=== PATIENT | female | born 2000 | race Two or more races ===

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

== ENCOUNTER 2024-05-08 06:29 | Emergency (ER) | payer MEDICAID, OTHER ==
[~2024-05-08] VITALS: Ht 157.5 cm; Wt 85.2 kg
[~2024-05-08 06:29] MED LIST: PREN-129 PO
[2024-05-08 06:34] VITALS: BP 124/81; PULSE 82; RESP 16; TEMP 97.8; O2SAT 99
[2024-05-08] MEDS ORDERED: PROM1SOL4 PO (06:55)
[2024-05-08] MEDS ORDERED: ALBU108A5 IN (06:55)
== END 2024-05-08 06:58 | disposition home or self-care (01) ==
LOC: ER 06:29
DX: J06.9 Acute upper respiratory infection, unspecified (principal); J45.909 Unspecified asthma, uncomplicated

== ENCOUNTER 2024-08-03 00:42 | Emergency (ER) | payer MEDICAID, OTHER ==
[~2024-08-03] VITALS: Ht 157.5 cm; Wt 84.6 kg
[~2024-08-03 00:42] MED LIST changes: +ALBU108A5 IN; +PROM1SOL4 PO
[2024-08-03] MEDS: IPRATROPIUM BROM 0.5 MG/2.5ML INH SOL NEB ONE (01:30)
[2024-08-03] MEDS: ALBUTEROL SULF 2.5 MG/0.5ML(0.5%) NEB SOLN NEB ONE (01:30)
[2024-08-03 02:35] VITALS: BP 147/87; PULSE 95; RESP 18; TEMP 98.3; O2SAT 99
[2024-08-03] MEDS: DexAMETHasone SOD PHOS 10MG/1ML VIAL INJ IM ONE (02:53)
[2024-08-03] MEDS ORDERED: PRED20TA2 PO (03:06)
[2024-08-03] MEDS ORDERED: ALBU108A5 IN (03:06)
[2024-08-03] MEDS: TETANUS-DIPTH-ACEL PERTUSSIS 0.5ML SYR Tdap IM ONE (03:41)
[2024-08-04] MEDS ORDERED: ALBU108A5 IN (03:23)
== END 2024-08-03 03:46 | disposition home or self-care (01) ==
LOC: ER 00:42
DX: S61.221A Laceration with foreign body of left index finger without damage to nail, initial encounter (principal); J45.909 Unspecified asthma, uncomplicated; Z79.899 Other long term (current) drug therapy; Z98.890 Other specified postprocedural states; Z91.012 Allergy to eggs; X58.XXXA Exposure to other specified factors, initial encounter; Y93.89 Activity, other specified; Y92.89 Other specified places as the place of occurrence of the external cause; Y99.8 Other external cause status
CPT/HCPCS: 10120; 90471; 90715; 94640; 96372; 99285; J1100

== ENCOUNTER 2024-08-11 04:00 | Emergency (ER) | payer MEDICAID ==
[~2024-08-11 04:00] MED LIST changes: +PRED20TA2 PO
== END 2024-08-11 04:36 | disposition left against medical advice (07) ==
LOC: ER 04:00
DX: Z48.00 Encounter for change or removal of nonsurgical wound dressing (principal); Z53.21 Procedure and treatment not carried out due to patient leaving prior to being seen by health care provider

== ENCOUNTER 2024-12-31 12:56 | Emergency (ER) | payer MEDICAID ==
[~2024-12-31] VITALS: Ht 157.5 cm; Wt 85.5 kg
[2024-12-31 13:17] VITALS: TEMP 98.1
[2024-12-31] MEDS: ONDANSETRON ODT 4 MG TAB PO ONE (13:23)
--- NOTE | 2024-12-31 13:39 | ED.PDOC ---
History of Present Illness HPI Comments 24 y/o F, with a history of asthma and obesity, presents with c/o nausea and vomiting for 2x weeks, today. Patient endorses on having symptoms "[id number]" for the above-mentioned duration of time. She comments on LMP being in October 2024 and not taking any test or seeking outpatient medical care for symptoms since then. Patient denies having any abdominal pain, hematemesis, diarrhea, constipation, fever, chills, urinary symptoms, or other associated symptoms or modifiers at this time. Chief Complaint: Nausea/Vomiting Time Seen by MD: 13:00 Primary Care Provider: NONE Reviewed Notes: Nurses Notes, Medications, Allergies Allergies: Coded Allergies: Egg-derived Products (Verified Allergy, Intermediate, Rash, itching, 12/21/21) Rash, itching Home Meds Active Scripts Albuterol Sulfate (Albuterol Sulfate Hfa) 108 Mcg/Act Aer, 108 MCG IN TID, #90 AER Prov:KEVIN DEMPSEY MD 08/04/24 Prednisone (Prednisone) 20 Mg Tab, 40 MG PO DAILY for 5 Days, #10 TAB Prov:YONG THOMPSON 08/03/24 Promethazine-Dm (Promethazine Dm 6.25-15 mg/5Ml) 1 Lata Lata, 5 ML PO TID, #150 ML Prov:INDRA REYES 05/08/24 Reported Medications Vit W/ Ferrous Fumara () Unknown Strength Tab, PO DAILY, #1 TAB 12/22/21 Information Source: Patient Mode of Arrival: Ambulatory Severity: Moderate Timing: Weeks Duration: Since onset Prehospital treatment: None Past Medical History PAST MEDICAL HISTORY: Asthma Past Medical History (Other): obesity Surgical History: Denies all surgeries COLD ROLL INSPECTOR History: No Pertinent COLD ROLL INSPECTOR History LMP 10/2024 Family History Family History: Reviewed,noncontributory to illness, No family hx of Cancer, No family hx of DM, No family hx of Heart arielle, No family hx of HTN, No family hx ofKidney arielle, No family hx of Liver arielle, No family hx of Lung arielle, No family hx of Stroke Social History Smoker: Non-Smoker Alcohol: Denies ETOH Use Drugs: Denies Drug Use Lives In: Home Gastrointestinal: reports: nausea, vomiting All Other Systems: Reviewed and Negative (negative unless otherwise stated above or in HPI) Physical Exam General Appearance: No Apparent Distress, Obese HEENT: Normal ENT Inspection, Pharynx Normal, TMs Normal Neck: Full Range of Motion, Non-Tender, Normal, Normal Inspection Respiratory: Chest Non-Tender, Lungs Clear, No Accessory Muscle Use, No Respiratory Distress, Normal Breath Sounds Cardiovascular: No Edema, No JVD, No Murmur, No Gallop, Normal Peripheral Pulses, Regular Rate/Rhythm Breast Exam: Deferred Gastrointestinal: No Organomegaly, Non Tender, No Pulsatile Mass, Normal Bowel Sounds, Soft Genitalia: Deferred Pelvic: Deferred Rectal: Deferred Extremities: No calf tenderness, Normal capillary refill, Normal inspection, Normal range of motion, Non-tender, No pedal edema Musculoskeletal : Apperance: Normal Neurologic: Alert, animal behaviourist II-XII nml as Tested, No Motor Deficits, Normal Affect, Normal Mood, No Sensory Deficits Cerebellar Function: Normal Reflexes: Normal Skin: Dry, Normal Color, Warm Lymphatic: No Adenopathy Was a procedure done? Was a procedure done?: No Differential Dx Considerations may include: , gastritis, gastroenteritis, viral syndrome X-Ray, Labs, Meds, VS Vital Signs Date Time Temp Pulse Resp B/P (MAP) Pulse Ox O2 Delivery O2 Flow Rate FiO2 12/31/24 15:15 65 16 131/51 (77) 100 12/31/24 13:17 86 18 98 Room Air 12/31/24 13:17 98.1 86 18 133/78 (96) 98 98.1 12/31/24 13:02 98.2 76 16 134/80 (98) 100 Lab Test 12/31/24 15:23 12/31/24 13:07 Range/Units Beta HCG, Quantitative 24071.5 H 1.5-4.2 mIU/mL Urine Color Yellow Yellow Urine Clarity Clear Clear Urine pH 6.0 5.0-9.0 Urine Specific [place] 1.025 1.001-1.035 Urine Protein Negative Negative Urine Ketones Negative Negative Urine Blood Negative Negative /uL Urine Nitrite Negative Negative Urine Bilirubin Negative Negative Urine Urobilinogen Normal Negative mg/dL Urine Leukocyte Esterase Trace Negative /uL Urine RBC 2 0 - 4 /hpf Urine Microscopic WBC 1 0-5 /HPF Urine Squamous Epithelial Cells Few <5 /hpf Urine Bacteria Few H None Seen /hpf Urine Mucus Few None Seen Urine Glucose Normal Normal mg/dL Urine Test Positive Negative Current Medications Medications (Trade) Dose Ordered Sig/Abdelrahman Route Start Time Stop Time Status Last Admin Ondansetron HCl (Zofran Po) 4 mg ONCE ONCE PO 12/31/24 13:15 12/31/24 13:16 DC 12/31/24 13:23 Time of 1ST Reevaluation: 13:30 Reevaluation 1ST: Unchanged Patient Education/Counseling: Diagnosis, Treatment, Prognosis, Need For Follow Up Family Education/Counseling: No Family Present Additional Information - I reviewed the following notes from patient's past medical encounters: previous ED visit on 08/11/24 - The following tests were ordered, and results were reviewed by me: test, urine - I discussed treatmlinents and results with medical personnel Departure 1 Departure Time of Disposition: 17:37 Impression: Primary Impression: Nausea and vomiting during Disposition: 01 HOME / SELF CARE / HOMELESS Condition: Good e-Prescriptions Ondansetron Odt 4MG Tab (ZOFRAN PO) 4 Mg Tb 4 MG PO Q4HP PRN for 3 Days, #15 TAB ODT TAB-DISSOLVE IN MOUTH, THEN SWALLOW Prov: SHEELA CAPELLAN MD 12/31/24 Discharged With: Self Critical Care Note Critical Care Time?: No Stability Stability form required: No Heart Score Heart Score: Heart Score Response (Comments) Value History N/A 0 EKG N/A 0 Age N/A 0 Risk Factors N/A 0 Troponin N/A 0 Total 0 I personally scribed for SHEELA CAPELLAN MD ([email or web address]) on 12/31/24 at 13:39. Electronically submitted by Hernandez Pizarro ([email or web address]). SHEELA CAPELLAN MD Dec 31, 2024 13:39
[2024-12-31 16:02] LABS: Urine Bacteria FEW /hpf (None Seen); Urine Blood Negative /uL (Negative); Urine Clarity Clear (Clear); Urine Color Yellow (Yellow); Urine Mucus FEW (None Seen); Urine Protein, UAD Negative (Negative); Urine Specific Gravity 1.025 (1.001-1.035); Urine Squamous Epithelial Cell FEW /hpf (<5); Urine Urobilinogen Normal (Negative); Urine WBC 1 /HPF (0-5)
--- NOTE | 2024-12-31 16:38 | DVH ---
EXAM: US , Transvaginal CLINICAL INDICATION: VOMITTING TECHNIQUE: Real-time transvaginal obstetrical ultrasound of the maternal pelvis and a first trimeste r with image documentation. Transvaginal imaging was used for better evaluation of the fet us and adnexa. COMPARISON: None FINDINGS: GESTATION: A single intrauterine . Gestational sac 2.37 cm. CRL 0.82 cm. Yolk sac visua lized. heart rate 123 beats per minute. PLACENTA/AMNIOTIC FLUID: Cannot be adequately evaluated due to the early gestational age. UTERUS/CERVIX: Unremarkable. No myometrial mass. The uterus measures 10.5 x 7.4 x 6.6 cm. OVARIES: Right ovary 3.4 a couple of 1.6, 1.5. No mass. The left ovary measures 4.0 x 2.5 x 2.0 c m. FREE FLUID: No free fluid. OTHER FINDINGS: . . GUDELIA 08/20/2025. . .. IMPRESSION: A live intrauterine corresponding to 6 weeks and 6 days gestation.
[2024-12-31] MEDS ORDERED: ZOFR4T PO (17:38)
[2024-12-31 17:43] VITALS: PULSE 67; RESP 16; O2SAT 100
[2024-12-31 17:44] VITALS: BP 146/74; PULSE 66; RESP 17; O2SAT 100
== END 2024-12-31 17:46 | disposition home or self-care (01) ==
LOC: ER 12:56
DX: O21.9 Vomiting of pregnancy, unspecified (principal); O99.511 Diseases of the respiratory system complicating pregnancy, first trimester; J45.909 Unspecified asthma, uncomplicated; Z79.52 Long term (current) use of systemic steroids; Z79.899 Other long term (current) drug therapy; Z91.012 Allergy to eggs; Z3A.01 Less than 8 weeks gestation of pregnancy
CPT/HCPCS: 36415; 76801; 76817; 81001; 81025; 84702; 86850; 86900; 86901; 99284; Q0162

== ENCOUNTER 2025-03-10 02:11 | Emergency (ER) | payer MEDICAID ==
[~2025-03-10] VITALS: Ht 157.5 cm; Wt 85.3 kg
[~2025-03-10 02:11] MED LIST changes: +ZOFR4T PO
--- NOTE | 2025-03-10 02:29 | ED.PDOC ---
GI ASSESSMENT HPI Comments 24 year old female presents to the ED with a chief complaint of abdominal pain onset today about 1 hour ago. Patient states she began experiencing RLQ pain about 1 hour ago, described as as a sharp and constant pain. PMHx asthma. Denies nausea, vomiting, diarrhea, chest pain, shortness of breath, headache, dizziness, blurry vision, fevers, chills. No other symptoms or modifying factors present at this time. Time Seen by MD: 02:25 Primary Care Provider: NONE Reviewed Notes: Medications, Allergies Allergies: Coded Allergies: Egg-derived Products (Verified Allergy, Intermediate, Rash, itching, 12/21/21) Rash, itching Home Meds Active Scripts Famotidine (PEPCID TABLET) 20 Mg Tb, 1 TAB PO BID PRN, #60 TAB 5 Refills Prov:PAULIE FROST MD 03/10/25 Metoclopramide Hcl (Reglan) 5 Mg Tab, 5 MG PO Q6HP PRN, #30 TAB Prov:PAULIE FROST MD 03/10/25 Cefdinir (Cefdinir) 300 Mg Cap, 1 CAP PO BID for 7 Days, #14 CAP Prov:PAULIE FROST MD 03/10/25 Ondansetron Odt 4MG Tab (ZOFRAN PO) 4 Mg Tb, 4 MG PO Q4HP PRN for 3 Days, #15 TAB ODT TAB-DISSOLVE IN MOUTH, THEN SWALLOW Prov:SHEELA CAPELLAN MD 12/31/24 Albuterol Sulfate (Albuterol Sulfate Hfa) 108 Mcg/Act Aer, 108 MCG IN TID, #90 AER Prov:KEVIN DEMPSEY MD 08/04/24 Prednisone (Prednisone) 20 Mg Tab, 40 MG PO DAILY for 5 Days, #10 TAB Prov:YONG THOMPSON 08/03/24 Promethazine-Dm (Promethazine Dm 6.25-15 mg/5Ml) 1 Lata Lata, 5 ML PO TID, #150 ML Prov:INDRA REYES 05/08/24 Reported Medications Vit W/ Ferrous Fumara () Unknown Strength Tab, PO DAILY, #1 TAB 12/22/21 Information Source: Patient Mode of Arrival: Ambulatory Timing: Hours Duration: Since onset Prehospital treatment: None Quality: Sharp Vomitus: None Severity: Moderate Recent: None Recent Hx of: None Pain Location: RLQ Modifying Factors: Nothing Associated sign and symptoms: Abdominal Pain Past Medical History PAST MEDICAL HISTORY: Asthma Surgical History: Denies all surgeries PUTTY AND CAULKING SUPERVISOR History: No Pertinent PUTTY AND CAULKING SUPERVISOR History Family History Family History: Reviewed,noncontributory to illness, No family hx of Cancer, No family hx of DM, No family hx of Heart arielle, No family hx of HTN, No family hx ofKidney arielle, No family hx of Liver arielle, No family hx of Lung arielle, No family hx of Stroke Social History Smoker: Non-Smoker Alcohol: Denies ETOH Use Drugs: Denies Drug Use Lives In: Home Constitutional: denies: chills, diaphoresis, fatigue, fever, malaise, sweats, weakness, others EENTM: denies: blurred vision, double vision, ear bleeding, ear discharge, ear drainage, ear pain, ear ringing, eye pain, eye redness, hearing loss, mouth pain, mouth swelling, nasal discharge, nose bleeding, nose congestion, nose pain, photophobia, tearing, throat pain, throat swelling, voice changes, others Respiratory: denies: cough, hemoptysis, orthopnea, SOB at rest, shortness of breath, SOB with excertion, stridor, wheezing, others Cardiovascular: denies: chest pain, dizzy spells, diaphoresis, Dyspnea on exer tion, edema, irregular heart beat, left arm pain, lightheadedness, palpitations, PND, syncope, others Gastrointestinal: reports: abdominal pain (RLQ); denies: abdomen distended, blood streaked bowels, constipated, diarrhea, dysphagia, difficulty swallowing, hematemesis, melena, nausea, poor appetite, poor fluid intake, rectal bleeding, rectal pain, vomiting, others Genitourinary: denies: abnormal vagina bleeding, burning, dyspareunia, dysuria, flank pain, frequency, hematuria, incontinence, pain, , vagina discharge, urgency, others Neurological: denies: dizziness, fainting, headache, left sided numbness, left sided weakness, numbness, paresthesia, pre-existing deficit, right sided numbness, right sided weakness, seizure, speech problems, tingling, tremors, weakness, others Musculoskeletal: denies: back pain, gout, joint pain, joint swelling, muscle pain, muscle stiffness, neck pain, others Integumetry: denies: bruises, change in color, change in hair/nails, dryness, laceration, lesions, lumps, rash, wounds, others Allergic/Immunocompromised: denies: Difficulty Healing, Frequent Infections, Hives, Itching, others Hematologic/Lymphatic: denies: anemia, blood clots, easy bleeding, easy bruising, swollen glands, others Endocrine: denies: excessive hunger, excessive sweating, excessive thirst, excessive urination, flushing, intolerance to cold, intolerance to heat, unexplained weight gain, unexplained weight loss, others Psychiatric: denies: anxiety, bipolar disorder, depression, hopeless, panic disorder, schizophrenia, sleepless, suicidal, others All Other Systems: Reviewed and Negative Physical Exam General Appearance: No Apparent Distress, Normal HEENT: Normal ENT Inspection, Pharynx Normal, TMs Normal Neck: Full Range of Motion, Non-Tender, Normal, Normal Inspection Respiratory: Chest Non-Tender, Lungs Clear, No Accessory Muscle Use, No Respiratory Distress, Normal Breath Sounds Cardiovascular: No Edema, No JVD, No Murmur, No Gallop, Normal Peripheral Pulses, Regular Rate/Rhythm Breast Exam: Deferred Gastrointestinal: No Organomegaly, Non Tender, No Pulsatile Mass, Normal Bowel Sounds, Soft Genitalia: Deferred Pelvic: Deferred Rectal: Deferred Extremities: No calf tenderness, Normal capillary refill, Normal inspection, Normal range of motion, Non-tender, No pedal edema Musculoskeletal : Apperance: Normal Neurologic: Alert, energy sales consultant II-XII nml as Tested, No Motor Deficits, Normal Affect, Normal Mood, No Sensory Deficits Cerebellar Function: Normal Reflexes: Normal Skin: Dry, Normal Color, Warm Lymphatic: No Adenopathy Was a procedure done? Was a procedure done?: No GI differential Dx Differential Diagnosis: Appendicitis, Complete , Incomplete , Inevitable , Cholangitis, Cholecystitis, Constipation, Ectopic , Gastritis/PUD, Gastroenteritis, Hernia, Inflammatory BD, Pancreatitis, Other X-Ray, Labs, Meds, VS Vital Signs Date Time Temp Pulse Resp B/P (MAP) Pulse Ox O2 Delivery O2 Flow Rate FiO2 03/10/25 03:30 89 19 127/79 03/10/25 02:56 98.1 93 16 126/78 (94) 97 98.1 03/10/25 02:55 93 16 126/78 03/10/25 02:20 98.4 83 16 143/76 (98) 100 98.4 Lab Test 03/10/25 02:35 03/10/25 02:34 03/10/25 02:20 Range/Units White Blood Count 12.0 H 4.4-10.8 10^3/uL Red Blood Count 4.48 4.0-5.20 10^6/uL Hemoglobin 10.4 L 12.2-16.2 g/dL Hematocrit 31.9 L 36.0-46.0 % Mean Corpuscular Volume 71.2 L 80.0-100.0 fL Mean Corpuscular Hemoglobin 23.1 L 28.0-32.0 pg Mean Corpuscular Hemoglobin Concent 32.5 32.0-36.0 g/dL Red Cell Distribution Width 20.7 H 11.8-14.3 % Platelet Count 363 140-450 10^3/uL Mean Platelet Volume 7.9 6.9-10.8 fL Neutrophils (%) (Auto) 75.4 37.0-80.0 % Lymphocytes (%) (Auto) 17.7 10.0-50.0 % Monocytes (%) (Auto) 4.5 0.0-12.0 % Eosinophils (%) (Auto) 1.8 0.0-7.0 % Basophils (%) (Auto) 0.6 0.0-2.0 % Neutrophils # (Auto) 9.0 H 1.6-8.6 10 ^3/uL Lymphocytes # (Auto) 2.1 0.4-5.4 10 ^3/uL Monocytes # (Auto) 0.5 0-1.3 10 ^3/uL Eosinophils # (Auto) 0.2 0-0.8 10 ^3/uL Basophils # (Auto) 0.1 0-0.2 10 ^3/uL Nucleated Red Blood Cells 0.1 % Sodium Level 135 L 136-145 mmol/L Potassium Level 3.9 3.5-5.1 mmol/L Chloride Level 104 98-107 mmol/L Carbon Dioxide Level 22 20-31 mmol/L Anion Gap 9 5-15 Blood Urea Nitrogen 6 L 9-23 mg/dL Creatinine 0.54 L 0.550-1.02 mg/dL Glomerular Filtration Rate Calc 133 >90 mL/min BUN/Creatinine Ratio 11.1 10.0-20.0 Serum Glucose 89 74-106 mg/dL Calcium Level 9.9 8.7-10.4 mg/dL Total Bilirubin 0.3 0.2-1.0 mg/dL Aspartate Amino Transferase (AST) 9 L 13-40 U/L Alanine Aminotransferase (ALT) < 9 7-40 U/L Alkaline Phosphatase 56 46-116 U/L Total Protein 7.8 5.7-8.2 g/dL Albumin 4.2 3.2-4.8 g/dL Lipase 38 12-53 U/L Beta HCG, Quantitative 41971.3 H 1.5-4.2 mIU/mL Urine Color Colorless Yellow Urine Clarity Turbid H Clear Urine pH 6.0 5.0-9.0 Urine Specific [place] 1.012 1.001-1.035 Urine Protein 1+ H Negative Urine Ketones Negative Negative Urine Blood Negative Negative /uL Urine Nitrite 2+ H Negative Urine Bilirubin Negative Negative Urine Urobilinogen Normal Negative mg/dL Urine Leukocyte Esterase 3+ Negative /uL Urine RBC 4 0 - 4 /hpf Urine WBC Clumps Present None Seen /hpf Urine Microscopic WBC 192 H 0-5 /HPF Urine Squamous Epithelial Cells Few <5 /hpf Urine Bacteria Few H None Seen /hpf Urine Hyaline Casts Few 0 - 2 /lpf Urine Mucus Few None Seen Urine Glucose Normal Normal mg/dL Current Medications Medications (Trade) Dose Ordered Sig/Abdelrahman Route Start Time Stop Time Status Last Admin Sodium Chloride 1,000 ml @ 1,000 mls/hr Q1H ONCE IVB 03/10/25 02:30 03/10/25 03:29 DC 03/10/25 02:56 Morphine Sulfate 4 mg ONCE ONCE IV 03/10/25 02:30 03/10/25 02:31 DC 03/10/25 02:55 Ondansetron HCl (Zofran) 4 mg ONCE ONCE IV 03/10/25 02:30 03/10/25 02:31 DC 03/10/25 02:56 Ceftriaxone Sodium 50 ml @ 100 mls/hr ONCE ONCE IV 03/10/25 04:30 03/10/25 04:59 DC 03/10/25 04:30 Time of 1ST Reevaluation: 02:55 Reevaluation 1ST: Unchanged Patient Education/Counseling: Diagnosis, Treatment, Prognosis Family Education/Counseling: No Family Present Additional Information The following tests were ordered, and results were reviewed by me: CBC, CMP, BETA HCG, LIPASE, UA, CT AB PEL WITH IV I reviewed and agreed with the following test results read by other providers: CT AB PEL WITH IV I discussed treatment and results with medical personnel and: Patient Comprehensive systems review obtained and negative except for what is stated in the HPI. Departure 1 Departure Time of Disposition: 04:00 Impression: Primary Impression: 16 weeks gestation of Additional Impression: UTI (urinary tract infection) Disposition: HOME / SELF CARE / HOMELESS Condition: Stable e-Prescriptions Famotidine (PEPCID TABLET) 20 Mg Tb 1 TAB PO BID PRN, #60 TAB 5 Refills Prov: PAULIE FROST MD 03/10/25 Metoclopramide Hcl (Reglan) 5 Mg Tab 5 MG PO Q6HP PRN, #30 TAB Prov: PAULIE FROST MD 03/10/25 Cefdinir (Cefdinir) 300 Mg Cap 1 CAP PO BID for 7 Days, #14 CAP Prov: PAULIE FROST MD 03/10/25 Discharged With: Self Critical Care Note Critical Care Time?: No Stability Stability form required: No I personally scribed for PAULIE FROST MD ([email or web address]) on 03/10/25 at 02:29. Electronically submitted by Elsie Mckeon ([email or web address]). I personally scribed for PAULIE FROST MD ([email or web address]) on 03/10/25 at 02:39. Electronically submitted by Elsie Mckeon ([email or web address]). PAULIE FROST MD Mar 10, 2025 02:29
[2025-03-10 02:45] LABS: Basophils # (auto) 0.1 10 ^3/uL (0-0.2); Eosinophils # (auto) 0.2 10 ^3/uL (0-0.8); Hemoglobin 10.4 g/dL (12.2-16.2); Lymphocytes # (auto) 2.1 10 ^3/uL (0.4-5.4); Mean Corpuscular Hemoglobin 23.1 pg (28.0-32.0)
[2025-03-10 02:47] LABS: Basophils % (auto) 0.6 % (0.0-2.0); Eosinophils % (auto) 1.8 % (0.0-7.0); Hematocrit 31.9 % (36.0-46.0); Lymphocytes % (auto) 17.7 % (10.0-50.0); Mean Corpuscular Hgb Conc. 32.5 g/dL (32.0-36.0); Mean Corpuscular Volume 71.2 fL (80.0-100.0); Monocytes # (auto) 0.5 10 ^3/uL (0-1.3); Monocytes % (auto) 4.5 % (0.0-12.0); Neutrophils % (auto) 75.4 % (37.0-80.0); Nucleated Red Blood Cells % 0.1 %; Platelet Count (auto) 363 10^3/uL (140-450); Red Blood Cells 4.48 10^6/uL (4.0-5.20); Red Cell Distribution Width 20.7 % (11.8-14.3)
[2025-03-10] MEDS: MORPHINE SULFATE 4 MG/ML SYR/VIAL IV ONE (02:55)
[2025-03-10 02:56] VITALS: TEMP 98.1; O2SAT 97
[2025-03-10] MEDS: SODIUM CHLORIDE 0.9% 1,000 ML IVB ONE (02:56)
[2025-03-10] MEDS: ONDANSETRON HCL 4 MG/2 ML VIAL IV ONE (02:56)
[2025-03-10 03:10] LABS: Albumin 4.2 g/dL (3.2-4.8); Alkaline Phosphatase 56 U/L (46-116); Anion Gap 9 (5-15); BUN/Creatinine Ratio 11.1 (10.0-20.0); Bilirubin, Total 0.3 mg/dL (0.2-1.0); Calcium 9.9 mg/dL (8.7-10.4); Carbon Dioxide 22 mmol/L (20-31); Chloride 104 mmol/L (98-107); Glucose 89 mg/dL (74-106); Lipase 38 U/L (12-53); Potassium 3.9 mmol/L (3.5-5.1); Total Protein 7.8 g/dL (5.7-8.2)
[2025-03-10 03:19] LABS: Urine Bacteria FEW /hpf (None Seen); Urine Blood Negative /uL (Negative); Urine Clarity Turbid (Clear); Urine Color Colorless (Yellow); Urine Hyaline Cast FEW /lpf (0 - 2); Urine Mucus FEW (None Seen); Urine Protein, UAD 1+ (Negative); Urine Specific Gravity 1.012 (1.001-1.035); Urine Squamous Epithelial Cell FEW /hpf (<5); Urine Urobilinogen Normal (Negative); Urine WBC 192 /HPF (0-5); Urine WBC Clumps PRESENT /hpf (None Seen)
[2025-03-10 03:22] LABS: Alanine Aminotransferase < 9 U/L (7-40); Aspartate Aminotransferase 9 U/L (13-40); Blood Urea Nitrogen 6 mg/dL (9-23); Sodium 135 mmol/L (136-145)
[2025-03-10 03:30] VITALS: BP 127/79; PULSE 89; RESP 19
[2025-03-10] MEDS: cefTRIAXone 1GM/50ML D5W 50 ML IV ONE (04:30)
--- NOTE | 2025-03-10 05:25 | DVH ---
LIMITED OB ULTRASOUND > 14 WKS: HISTORY: abd pain TECHNIQUE: Multiple real-time grayscale images of the gravid uterus with duplex Doppler color flow an d M-mode spectral analysis. FINDINGS: IUP single live fetus at 16 weeks 5 days based on composite averages of the BPD, head circumference, abdominal circumference and femur length. Measurements are as follows: BPD: 3.5 cm, 16 day 6 weeks HC: 13.4 cm, 16 weeks 6 days AC: 10.8 cm, 16 weeks 5 days FL: 2.1 cm, 16 weeks 2 days. Estimated weight 160 grams heart rate 153 beats per minute Expected date of delivery 08/20/2025. ERIC not measured. MVP measures 6 cm. Cervix 3.2 cm in length. Breech Presentation Posterior Placenta without previa or abruption. IMPRESSION: 1. IUP single gestation measuring 16 weeks 5 days with positive heart rate.
[2025-03-10] MEDS ORDERED: CEFD300C2 PO (05:38)
[2025-03-10] MEDS ORDERED: METO5TAB67 PO (05:39)
[2025-03-10] MEDS ORDERED: FAMO20TA10 PO (05:39)
== END 2025-03-10 05:53 | disposition home or self-care (01) ==
LOC: ER 02:11
DX: O23.42 Unspecified infection of urinary tract in pregnancy, second trimester (principal); R10.2 Pelvic and perineal pain; N39.0 Urinary tract infection, site not specified; O99.512 Diseases of the respiratory system complicating pregnancy, second trimester; J45.909 Unspecified asthma, uncomplicated; Z79.52 Long term (current) use of systemic steroids; Z3A.16 16 weeks gestation of pregnancy; Z91.012 Allergy to eggs
CPT/HCPCS: 36415; 76805; 80053; 81001; 83690; 84702; 85025; 96361; 96365; 96375; 99285; J0696; J2270; J2405; J7030

== ENCOUNTER 2025-08-03 23:18 | Observation (INO) | payer MEDICAID ==
[~2025-08-03] VITALS: Ht 160 cm; Wt 88.5 kg
[~2025-08-03 23:18] MED LIST changes: +CEFD300C2 PO; +FAMO20TA10 PO; +METO5TAB67 PO
[2025-08-04 00:52] LABS: Hematocrit 28.9 % (36.0-46.0); Hemoglobin 8.9 g/dL (12.2-16.2); Mean Corpuscular Hemoglobin 21.8 pg (28.0-32.0); Mean Corpuscular Volume 70.5 fL (80.0-100.0); Nucleated Red Blood Cells % 0.1 %
[2025-08-04 01:04] LABS: Urine Protein, UAD Negative (Negative)
[2025-08-04 01:11] LABS: Alanine Aminotransferase 11 U/L (7-40); Albumin 4.0 g/dL (3.2-4.8); Alkaline Phosphatase 113 U/L (46-116); Anion Gap 10 (5-15); Bilirubin, Total 0.5 mg/dL (0.2-1.0); Calcium 9.3 mg/dL (8.7-10.4); Carbon Dioxide 22 mmol/L (20-31); Chloride 102 mmol/L (98-107); Glucose 94 mg/dL (74-106); Potassium 4.1 mmol/L (3.5-5.1); Total Protein 7.5 g/dL (5.7-8.2); Uric Acid 6.9 mg/dL (3.1-7.8)
[2025-08-04 01:15] LABS: BUN/Creatinine Ratio 8.2 (10.0-20.0); Blood Urea Nitrogen < 5 mg/dL (9-23); Sodium 134 mmol/L (136-145)
[2025-08-04 01:38] LABS: INR 0.97 (0.9-1.15); Partial Thromboplastin Time 28.8 SEC (24.5-34.5); Prothrombin Time 10.3 sec (9.3-11.8)
--- NOTE | 2025-08-04 01:47 | DVH ---
EXAM: US OB ULTRASOUND COMP GTR 14 WKS HISTORY: no records TECHNIQUE: Multiple real-time grayscale images of the gravid uterus with duplex Doppler color flow an d M-mode spectral analysis. COMPARISON: US OB MORE THAN 14 WKS on DOS: 05/16/25, US OB ULTRASOUND COMP GTR 14 WKS on DOS: 03/10/25, US OB ULTRASOUND COMP LESS 14WKS on DOS: 12/31/24, US OB ULTRASOUND COMP GTR 14 WKS on DOS: 02/28/23 FINDINGS: IUP single live fetus at 36 weeks 2 days average ultrasound age (AUA) based on composite averages of the BPD, head circumference, abdominal circumference and femur length Age based on (early ultrasound) : 36 weeks 2 days MEASUREMENTS: BPD: 9.0 cm GA: 36 w 3 d HC: 32.4 cm GA: 36 w 4 d AC: 33.6 cm GA: 37 w 3 d FL: 6.7 cm GA: 34 w 4 d Estimated weight 2973+/-446 grams; 6 lbs 9 oz, +/-1 lb 0 oz, 29th percentile. heart rate 152 beats per minute ERIC 18.9 cm ANATOMIC SURVEY: Complete anatomic survey was not performed at this time. movement identified. Cephalic Presentation Anterior grade I placenta without previa or abruption Cervix closed measuring 3.2 cm IMPRESSION: 1. IUP single live with positive heart tones fetus at 36 weeks 2 days AUA corresponding to an E DD of 08/30/2025. 2. No evidence of placenta previa or abruption.
[2025-08-04 02:02] LABS: Protein, Urine 28.3 mg/dL (1-14)
[2025-08-04 02:04] LABS: Amphetamine Screen, Urine Neg (NEGATIVE); Barbiturate Scree,Urine Neg (NEGATIVE); Benzodiazephine Screen, Urine Neg (NEGATIVE); Cannabinoid Screen, Urine Pos (NEGATIVE); Cocaine Screen, Urine Neg (NEGATIVE); Opiate Scree,Urine Neg (NEGATIVE); Phencyclidine Screen, Urine Neg (NEGATIVE)
--- NOTE | 2025-08-04 02:43 | DVH ---
LIMITED OB ULTRASOUND > 14 WKS: HISTORY: NONREACTIVE NST TECHNIQUE: Limited transabdominal sonographic assessment of maternal and structures. COMPARISON: None FINDINGS: Intrauterine gestation with heart rate of 144 beats per minute. Cephalic position. Anterior pl acenta without evidence of previa or abruption. ERIC measures 17.8 cm. breathin/2 movements: 2/2 tone: 2/2 Amniotic Fluid: 2/2 IMPRESSION: 1. Intrauterine gestation with cardiac activity. No evidence of gestational complication. 2. Normal BPP score of 8/8.
--- NOTE | 2025-08-04 10:47 | DVHDS2 ---
Physician Discharge Progress N Final Diagnosis: Tennyson mcnulty contractions Ruled out preeclampsia +THC use Operations or Procedures: Operations or Procedures S: 24yo IUP@38.1wks presents to OB triage via ambulance for abdominal pain caused by UCs. Pt reports UCs Q5 min that started at 2200. Also reports intermi ttent blurry vision and brown vaginal discharge the last couple days. Denies LOF/VB/CHIU/vision changes/RUQ pain. Endorses +FM. PNC with Dr. Danelle Porter, uncomplicated per pt. No records available to review. Pt reports living in a hotel the last two years, does not have transportation, plans to lyft back to the hotel with partner after baby is born. OB hx: x3, uncomplicated, all weighed 5lbs PMH: asthma PSH: denies O: VSS prior to D/C, see CPN EFM: FHR baseline 145, moderate variability, +accels, -decels (at D/C) TOCO: UCs q2-5min SVE by RN - /-3, annabella d/c noted SVE by RN prior to D/C - unchanged, /-3 Laboratory Tests Test 08/04/25 00:30 Range/Units White Blood Count 13.6 H 4.4-10.8 10^3/uL Red Blood Count 4.10 4.0-5.20 10^6/uL Hemoglobin 8.9 L 12.2-16.2 g/dL Hematocrit 28.9 L 36.0-46.0 % Mean Corpuscular Volume 70.5 L 80.0-100.0 fL Mean Corpuscular Hemoglobin 21.8 L 28.0-32.0 pg Mean Corpuscular Hemoglobin Concent 30.9 L 32.0-36.0 g/dL Red Cell Distribution Width 17.6 H 11.8-14.3 % Platelet Count 317 140-450 10^3/uL Mean Platelet Volume 7.9 6.9-10.8 fL Neutrophils (%) (Auto) 76.3 37.0-80.0 % Lymphocytes (%) (Auto) 15.7 10.0-50.0 % Monocytes (%) (Auto) 5.9 0.0-12.0 % Eosinophils (%) (Auto) 1.7 0.0-7.0 % Basophils (%) (Auto) 0.4 0.0-2.0 % Neutrophils # (Auto) 10.4 H 1.6-8.6 10 ^3/uL Lymphocytes # (Auto) 2.1 0.4-5.4 10 ^3/uL Monocytes # (Auto) 0.8 0-1.3 10 ^3/uL Eosinophils # (Auto) 0.2 0-0.8 10 ^3/uL Basophils # (Auto) 0.1 0-0.2 10 ^3/uL Nucleated Red Blood Cells 0.1 % Prothrombin Time 10.3 9.3-11.8 sec Prothrombin Time INR 0.97 0.9-1.15 Activated Partial Thromboplast Time 28.8 24.5-34.5 SEC Urine Color Yellow Yellow Urine Clarity Clear Clear Urine pH 6.5 5.0-9.0 Urine Specific [place] 1.020 1.001-1.035 Urine Protein Negative Negative Urine Ketones Negative Negative Urine Blood Negative Negative /uL Urine Nitrite Negative Negative Urine Bilirubin Negative Negative Urine Urobilinogen 2 H Negative mg/dL Urine Leukocyte Esterase 3+ Negative /uL Urine RBC None seen 0 - 4 /hpf Urine Microscopic WBC 10 H 0-5 /HPF Urine Squamous Epithelial Cells Few <5 /hpf Urine Bacteria None seen None Seen /hpf Urine Mucus Few None Seen Urine Creatinine 184.05 H 30.0-125.0 mg/dL Urine Protein/Creatinine Ratio 0.15 Urine Glucose Normal Normal mg/dL Urine Total Protein 28.3 H 1-14 mg/dL Sodium Level 134 L 136-145 mmol/L Potassium Level 4.1 3.5-5.1 mmol/L Chloride Level 102 98-107 mmol/L Carbon Dioxide Level 22 20-31 mmol/L Anion Gap 10 5-15 Blood Urea Nitrogen < 5 L 9-23 mg/dL Creatinine 0.61 0.550-1.02 mg/dL Glomerular Filtration Rate Calc 130 >90 mL/min BUN/Creatinine Ratio 8.2 L 10.0-20.0 Serum Glucose 94 74-106 mg/dL Uric Acid 6.9 3.1-7.8 mg/dL Calcium Level 9.3 8.7-10.4 mg/dL Total Bilirubin 0.5 0.2-1.0 mg/dL Aspartate Amino Transferase (AST) 28 13-40 U/L Alanine Aminotransferase (ALT) 11 7-40 U/L Alkaline Phosphatase 113 46-116 U/L Total Protein 7.5 5.7-8.2 g/dL Albumin 4.0 3.2-4.8 g/dL Urine Opiates Screen Neg NEGATIVE Urine Fentanyl Screen Neg NEGATIVE Urine Barbiturates Screen Neg NEGATIVE Urine Phencyclidine Screen Neg NEGATIVE Urine Amphetamines Screen Neg NEGATIVE Urine Benzodiazepines Screen Neg NEGATIVE Urine Cocaine Screen Neg NEGATIVE Urine Cannabinoids Screen Pos NEGATIVE Treponema pallidum Antibody Non-reactive Negative Hepatitis B Surface Antigen Negative Negative Hepatitis C Antibody Negative Negative HIV (1&2) Antibody Negative Negative Rubella Antibody Positive A: 24yo IUP@38.1wks Category I EFM Tennyson mcnulty contractions Ruled out preeclampsia +THC use P: Dr. Lagos consulted, plan is to D/C home and have pt f/u with Dr. Porter on 08/04/25. FKC/PreE/Labor precautions reviewed Rest and hydrate at home Instructed to stop using THC in . Other Interventions Other Interventions [place] [id number] Ph: [phone] DIAGNOSTIC IMAGING Diagnostic Imaging Report : [id number] Signed PATIENT: MARIA D DAVIS RAMONAACCT: [id number] UNIT: [id number] : 2000 LOC: [facility] ROOM / BED: TRIAGE2 / A AGE / SEX: 24 / F ADM STATUS: ADM IN SERVICE 0006 ORDERING PHYSICIAN: JYOTI OROZCO CNM PROCEDURE(s): BPP - BIOPHYSICAL PROFILE REASON: NONREACTIVE NST ORDER NUMBER(s): [id number], ACCESSION NUMBER(s): [id number] LIMITED OB ULTRASOUND > 14 WKS: HISTORY: NONREACTIVE NST TECHNIQUE: Limited transabdominal sonographic assessment of maternal and structures. COMPARISON: None FINDINGS: Intrauterine gestation with heart rate of 144 beats per minute. Cephalic position. Anterior placenta without evidence of previa or abruption. ERIC measures 17.8 cm. breathin/2 movements: 2/2 tone: 2/2 Amniotic Fluid: 2/2 IMPRESSION: 1. Intrauterine gestation with cardiac activity. No evidence of gestational complication. 2. Normal BPP score of 8/8. ATED BY: JUSTYNA BUCKNER MD DICTATED DATE/TIME: 08/04/25240 SIGNED BY: JUSTYNA BUCKNER MD SIGNED DATE/TIME: 08/04/25240 CC: Consultations: Consultations [place] [id number] Ph: [phone] DIAGNOSTIC IMAGING Diagnostic Imaging Report : [id number] Signed PATIENT: MARIA D DAVISACCT: [id number] UNIT: [id number] : 2000 LOC: [facility] ROOM / BED: [facility] / A AGE / SEX: 24 / F ADM STATUS: ADM IN SERVICE ORDERING PHYSICIAN: JYOTI OROZCO CNM PROCEDURE(s): OBUS - OB ULTRASOUND COMP GTR 14 WKS REASON: no records ORDER NUMBER(s): [id number], ACCESSION NUMBER(s): [id number] EXAM: US OB ULTRASOUND COMP GTR 14 WKS HISTORY: no records TECHNIQUE: Multiple real-time grayscale images of the gravid uterus with duplex Doppler color flow and M-mode spectral analysis. COMPARISON: US OB MORE THAN 14 WKS on DOS: 05/16/25, US OB ULTRASOUND COMP GTR 14 WKS on DOS: 03/10/25, US OB ULTRASOUND COMP LESS 14WKS on DOS: 12/31/24, US OB ULTRASOUND COMP GTR 14 WKS on DOS: 02/28/23 FINDINGS: IUP single live fetus at 36 weeks 2 days average ultrasound age (AUA) based on composite averages of the BPD, head circumference, abdominal circumference and femur length Age based on (early ultrasound) : 36 weeks 2 days MEASUREMENTS: BPD: 9.0 cm GA: 36 w 3 d HC: 32.4 cm GA: 36 w 4 d AC: 33.6 cm GA: 37 w 3 d FL: 6.7 cm GA: 34 w 4 d Estimated weight 2973+/-446 grams; 6 lbs 9 oz, +/-1 lb 0 oz, 29th percentile. heart rate 152 beats per minute ERIC 18.9 cm ANATOMIC SURVEY: Complete anatomic survey was not performed at this time. movement identified. Cephalic Presentation Anterior grade I placenta without previa or abruption Cervix closed measuring 3.2 cm IMPRESSION: 1. IUP single live with positive heart tones fetus at 36 weeks 2 days AUA corresponding to an GUDELIA of 08/30/2025. 2. No evidence of placenta previa or abruption. ATED BY: KIKE BARTHOLOMEW MD DICTATED DATE/TIME: 08/04/25143 SIGNED BY: KIKE BARTHOLOMEW MD SIGNED DATE/TIME: 08/04/25143 CC: Condition on Discharge: Stable Disposition: Home Discharge Instructions: Diet: Regular Activity: No Restrictions, As Tolerated Medications: see med list Follow Up Care: Specialist: f/u with Dr. Porter on 08/04/25. Discharge Statement: "Patient was advised to return to the ER or call 911 if any headaches, dizziness, shortness of breath, chest pain, abdominal pain, bleeding, fevers, or worsening of medical condition. Patient was counseled about treatment plan, medications, possible side effects, patientverbalized understanding. All questions were answered to the best of my ability. This discharge took greater then 30 minutes in planning, reviewing documentation, counseling the patient, and discussing with other team members." Visit Coding OBGYN Date of Service: Aug 04, 2025 Billing Provider: JYOTI OROZCO CNM SYSTEM CONFIGURATION SPECIALIST Common Visit Codes: [id number] OBS CARE (HIGH) SYSTEM CONFIGURATION SPECIALIST Procedure Codes: 10319-82- NON-STRESS TEST JYOTI OROZCO CNM Aug 04, 2025 10:47
== END 2025-08-04 02:58 | disposition home or self-care (01) ==
LOC: LDRP 23:18
PROVIDERS: ADMIT Obstetrics & Gynecology; ATTEND Obstetrics & Gynecology
DX: O62.9 Abnormality of forces of labor, unspecified (principal); J45.909 Unspecified asthma, uncomplicated; O26.893 Other specified pregnancy related conditions, third trimester; F12.90 Cannabis use, unspecified, uncomplicated; N89.8 Other specified noninflammatory disorders of vagina; O99.323 Drug use complicating pregnancy, third trimester; Z3A.38 38 weeks gestation of pregnancy; Z98.890 Other specified postprocedural states; Z79.899 Other long term (current) drug therapy; Z86.2 Personal history of diseases of the blood and blood-forming organs and certain disorders involving the immune mechanism
CPT/HCPCS: 36415; 76805; 76819; 80053; 80307; 81001; 81002; 82570; 84156; 84550; 85025; 85610; 85730; 86703; 86762; 86780; 86803; 86850; 86900; 86901; 87340; 94762; G0378; 59025